=== PATIENT | female | born 1980 | race African-American/Black ===

== ENCOUNTER 2016-07-25 21:18 | Emergency (ER) | payer OTHER ==
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
== END 2016-07-25 22:40 | disposition home or self-care (01) ==
LOC: CFTX 21:18
DX: S13.9XXA Sprain of joints and ligaments of unspecified parts of neck, initial encounter (principal); F17.210 Nicotine dependence, cigarettes, uncomplicated; Z88.8 Allergy status to other drugs, medicaments and biological substances; Z91.040 Latex allergy status; V43.52XA Car driver injured in collision with other type car in traffic accident, initial encounter
CPT/HCPCS: 72040; 84703; 99283